=== PATIENT | female | born 1990 | race American Indian/Alaskan Native ===

== ENCOUNTER 2017-11-10 23:41 | Emergency (ER) | payer SELFPAY ==
[2017-11-11 01:45] LABS: Hematocrit 40.5 % (30.3-42.9); Hemoglobin 13.4 gm/dl (10.1-14.3); Mean Corpuscular HGB Conc 33 % (30-34); Mean Corpuscular Hemoglobin 30 pg (28-32); Mean Corpuscular Volume 90 fl (79-97); Platelet Count 256 K/mm3 (140-440); Red Blood Count 4.48 M/mm3 (3.65-5.03); Red Cell Distribution Width 13.3 % (13.2-15.2)
[2017-11-11 02:39] LABS: Anisocytosis 1+; Large Platelets Few; Total Cells Counted 100
[2017-11-11 06:45] VITALS: BP 117/69
--- NOTE | 2017-11-11 08:13 | Emergency Department Report ---
HPI - General Chief Complaint: Vaginal Bleeding Time Seen by Provider: 11/11/17 07:58 - HPI HPI: Room 22 The patient is a 27-year-old female presenting with a chief complaint of vaginal bleeding. The patient states she has had vaginal bleeding for 1 month. The patient states she is going through approximately 2 pads per day yesterday the bleeding became heavier. The patient says yesterday she began passing blood clots vaginally and she had to use 3 pads. Patient complains of occasional cramping lower abdominal pain. Patient denies any history of fever. 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 Location: [See above] Duration: One month Quality: Cramping Severity: Currently 0/10 Modifying factors: [see above] Context: [see above] Mode of transportation: Unknown ED Past Medical Hx - Past Medical History Previous Medical History?: No - Surgical History Past Surgical History?: No - Family History Family history: no significant - Social History Smoking Status: Never Smoker Substance Use Type: None (denies illicit drug use) - Medications Home Medications: Home Medications Medication Instructions Recorded Confirmed Last Taken Type Ibuprofen [Motrin 800 MG tab] 800 mg PO Q8HR PRN #20 tablet 11/11/17 Unknown Rx medroxyPROGESTERone ACETATE 10 mg PO QDAY #10 tablet 11/11/17 Unknown Rx [Provera] traMADol [Ultram] 50 mg PO Q6HR PRN #14 tablet 11/11/17 Unknown Rx ED Review of Systems ROS: Stated complaint: VAGINAL BLEEDING Other details as noted in HPI Constitutional: denies: fever Eyes: denies: eye pain ENT: denies: throat pain Cardiovascular: denies: chest pain Gastrointestinal: abdominal pain Genitourinary: denies: dysuria Musculoskeletal: denies: back pain Neurological: denies: headache Physical Exam - Physical Exam Vital Signs: Vital Signs 11/11/17 11/11/17 11/11/17 00:38 05:07 05:15 Temperature 98.4 F Pulse Rate 85 Respiratory 18 Rate Blood Pressure 112/70 O2 Sat by Pulse 100 100 100 Oximetry 11/11/17 11/11/17 11/11/17 05:17 05:31 05:45 Temperature Pulse Rate Respiratory 18 Rate Blood Pressure 101/59 101/59 O2 Sat by Pulse 100 100 Oximetry 11/11/17 11/11/17 11/11/17 06:00 06:15 06:30 Temperature Pulse Rate Respiratory Rate Blood Pressure 107/66 107/66 117/69 O2 Sat by Pulse 100 100 99 Oximetry Physical Exam: GENERAL: The patient is well-developed well-nourished female lying on stretcher not appearing to be in acute distress. [] HEENT: Normocephalic. Atraumatic. Extraocular motions are intact. Patient has moist mucous membranes. NECK: Supple. Trachea midline CHEST/LUNGS: Clear to auscultation. There is no respiratory distress noted. HEART/CARDIOVASCULAR: Regular. There is no tachycardia. There is no gallop rub or murmur. ABDOMEN: Abdomen is soft, with mild discomfort to palpation in the suprapubic region. Patient has normal bowel sounds. There is no abdominal distention. SKIN: There is no rash. There is no edema. There is no diaphoresis. NEURO: The patient is awake, alert, and oriented. The patient is cooperative. The patient has normal speech MUSCULOSKELETAL: There is no evidence of acute injury. Pelvic: Scant 2 small amount of blood in the vaginal vault ED Course Vital Signs 11/11/17 11/11/17 11/11/17 00:38 05:07 05:15 Temperature 98.4 F Pulse Rate 85 Respiratory 18 Rate Blood Pressure 112/70 O2 Sat by Pulse 100 100 100 Oximetry 11/11/17 11/11/17 11/11/17 05:17 05:31 05:45 Temperature Pulse Rate Respiratory 18 Rate Blood Pressure 101/59 101/59 O2 Sat by Pulse 100 100 Oximetry 11/11/17 11/11/17 11/11/17 06:00 06:15 06:30 Temperature Pulse Rate Respiratory Rate Blood Pressure 107/66 107/66 117/69 O2 Sat by Pulse 100 100 99 Oximetry ED Medical Decision Making - Lab Data Result diagrams: 11/11/17 00:55 Laboratory Tests 11/11/17 11/11/17 11/11/17 00:55 00:55 01:03 WBC 6.4 RBC 4.48 Hgb 13.4 Hct 40.5 MCV 90 MCH 30 MCHC 33 RDW 13.3 Plt Count 256 Lymph % (Auto) [place] Man Add Manual Diff Complete Total Counted 100 Seg Neutrophils % [place] Man Seg Neuts % (Manual) 38.0 L Band Neutrophils % 0 Lymphocytes % (Manual) 54.0 H Reactive Lymphs % (Man) 0 Monocytes % (Manual) 3.0 Eosinophils % (Manual) 2.0 Basophils % (Manual) 1.0 Metamyelocytes % 2.0 Myelocytes % 0 Promyelocytes % 0 Blast Cells % 0 Nucleated RBC % Not Reportable Seg Neutrophils # Man 2.4 Band Neutrophils # 0.0 Lymphocytes # (Manual) 3.5 Abs React Lymphs (Man) 0.0 Monocytes # (Manual) 0.2 Eosinophils # (Manual) 0.1 Basophils # (Manual) 0.1 Metamyelocytes # 0.1 Myelocytes # 0.0 Promyelocytes # 0.0 Blast Cells # 0.0 WBC Morphology Not Reportable Hypersegmented Neuts Not Reportable Hyposegmented Neuts Not Reportable Hypogranular Neuts Not Reportable Smudge Cells Not Reportable Toxic Granulation Not Reportable Toxic Vacuolation Not Reportable Dohle Bodies Not Reportable Pelger-Huet Anomaly Not Reportable Brad Rods Not Reportable Platelet Estimate Appears normal Clumped Platelets Not Reportable Plt Clumps, EDTA Not Reportable Large Platelets Few Giant Platelets Not Reportable Platelet Satelliting Not Reportable Plt Morphology Comment Not Reportable RBC Morphology Not Reportable Dimorphic RBCs Not Reportable Polychromasia Not Reportable Hypochromasia Not Reportable Poikilocytosis Not Reportable Anisocytosis 1+ Microcytosis Not Reportable Macrocytosis Not Reportable Spherocytes Not Reportable Pappenheimer Bodies Not Reportable Sickle Cells Not Reportable Target Cells Not Reportable Tear Drop Cells Not Reportable Ovalocytes Not Reportable Helmet Cells Not Reportable Ontiver[place] Bodies Not Reportable [place] Rings Not Reportable Emily Cells Not Reportable Bite Cells Not Reportable Crenated Cell Not Reportable Elliptocytes Not Reportable Acanthocytes (Spur) Not Reportable Rouleaux Not Reportable Hemoglobin C Crystals Not Reportable Schistocytes Not Reportable Malaria parasites Not Reportable Roney Bodies Not Reportable Hem Pathologist Commnt No HCG, Qual Negative Blood Type O POSITIVE Antibody Screen Negative - Radiology Data Radiology results: report reviewed (pelvic ultrasound), image reviewed (pelvic ultrasound) Pelvic ultrasound (read by radiologist)-Slightly thickened endometrium. Subendometrial uterine fibroid - Differential Diagnosis menorrhagia, missed , ectopic , threatened Critical care attestation.: If time is entered above; I have spent that time in minutes in the direct care of this critically ill patient, excluding procedure time. ED Disposition Clinical Impression: Menorrhagia Disposition: DC- TO HOME OR SELFCARE Is pt being admited?: No Does the pt Need Aspirin: No Condition: Stable Instructions: Menorrhagia (ED) Additional Instructions: Return to the emergency department immediately should you develop worsening symptoms, fever, inability to tolerate food or liquid or any other concerns. 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
--- NOTE | 2017-11-11 09:59 | Ultrasound Report ---
Pelvic ultrasound: Menorrhagia. Transabdominal and endovaginal imaging is performed. The uterus is slightly anteverted. It measures 4.1 x 4.6 x 8 cm. At the superior margin of the endometrium there is a defined hypodense mass measuring 16 mm. The endometrium is slightly heterogeneous having a diameter of 14.1 mm. No polyp identified. No evidence of intrauterine . The right ovary measures 3.7 cm in maximum dimension and the left measures 3.8 cm. Both contains several follicles. No adnexal masses otherwise identified. No free fluid. Impression: 1. Slightly thickened endometrium. 2. Subendometrial fibroid.
== END 2017-11-11 11:12 | disposition home or self-care (01) ==
LOC: ED 23:41
DX: N92.0 Excessive and frequent menstruation with regular cycle (principal)
CPT/HCPCS: 36415; 76830; 76856; 84703; 85007; 85025; 86850; 86900; 86901; 99284